=== PATIENT | female | born 1935 | race Caucasian/White ===

== ENCOUNTER 2017-03-27 18:46 | Emergency (ER) | payer OTHER, BC ==
[~2017-03-27] VITALS: Ht 149.9 cm; Wt 52.6 kg
[~2017-03-27 18:46] MED LIST: ALDACTONE50 MG PO; ASPIR-LOW81 MG PO; ASPIRIN EC325 MG PO; CELECOXIB200 MG PO; GENTEAL MILD25 ML BOTH EYES; HYDROCODON-ACE1 EAC7 PO; IRON325 M1 PO; MAGNESIUM250 MG PO; MURO-128 OPHTH3.5 GM BOTH EYES; NEXIUM 24HR20 MG PO; NEXIUM20 MG PO; POLYETHYLENE GL17 GM PO; PRAVASTATIN SOD40 MG PO; SENNA PLUS TAB1 EACH PO; SPIRONOLACTONE50 MG PO; THERAGRAN1 TABLET PO
[2017-03-27 21:33] VITALS: BP 133/76
== END 2017-03-27 21:34 | disposition home or self-care (01) ==
LOC: EME → EDBD 18:46 → EME 18:46
DX: S01.511A Laceration without foreign body of lip, initial encounter (principal); S02.5XXA Fracture of tooth (traumatic), initial encounter for closed fracture; W01.0XXA Fall on same level from slipping, tripping and stumbling without subsequent striking against object, initial encounter; I10 Essential (primary) hypertension; K21.9 Gastro-esophageal reflux disease without esophagitis
CPT/HCPCS: 99281; 99284